=== PATIENT | male | born 1990 | race Caucasian/White ===

== ENCOUNTER 2019-08-10 14:00 | Inpatient (IN) | payer MEDICARE, MEDICAID, SELFPAY ==
[2019-08-10 14:01] VITALS: BP 129/83; PULSE 73; RESP 18; TEMP 36.6; O2SAT 99; BMI 23.0
--- NOTE | 2019-08-10 14:10 | ED_ITS ---
Entered by Lexii Staton, acting as scribe for Gloria Sutton MD, [facility] HPI - Psych General: Chief Complaint: Psychiatric Symptoms Stated Complaint: psych eval Time Seen by Provider: 08/10/19 14:09 Source: patient Mode of arrival: EMS Limitations: no limitations History of Present Illness: HPI Narrative: 28 yo Male presents to ED with complaint of psychiatric symptoms. Pt states that he moved here in May with his uncle. Pt states that he moved here from [place]. Pt states that he started getting really lonely and depressed. Pt states that he reached out to his dad's side of the family and moved to [place]. Pt states that they were alcoholics and he was subjected to that every night. Pt states that he left his uncle's house and went to stay with a girl named Alisson. Pt states that she smoked marijuana and methamphetamines and she kept trying to sleep with him. Pt states that it wasn't the place for him. Pt states that he smokes cigarettes now but only did because his aunt smoked and then he used chewing tobacco because his uncle gave it to him. Pt states that he doesn't do any drugs. Pt states that he is his worst critic and anytime anything bad happens he beats himself up about it. Pt denies suicidal and homicidal ideations at this time. Pt states that he hated to call the supervisor pole yard on his uncle but it was a matter of his own safety. Pt states that he gets paid on August 18 and he can get back to [place]. complaint: feels depressed Onset (ago): month(s) Duration: constant History of same: Yes Relieving factors: none Exacerbating factors: none Context: significant life stressor Associated psychiatric symptoms: depression Associated symptoms: Reports depression; Deny homicidal ideation or suicidal ideation Treatments prior to arrival: none Review of Systems General: Reports: 10 or more systems reviewed and unremarkable except in HPI and below Const: Denies: fever, chills or body aches Eyes: Denies: change in vision or blurry vision ENMT: Denies: throat pain, enlarged tonsils, painful swallowing, hoarseness, mouth pain or swelling of lips/tongue Card: Denies: chest pain, palpitations, irregular heart rhythm, edema or swelling of feet/ankles Resp: Denies: shortness of breath, productive cough or non-productive cough GI: Denies: abdominal pain, nausea or vomiting : Denies: flank pain, painful urination, urinary frequency, urinary urgency or urinary hesitancy Musc: Denies: neck pain, back pain or extremity swelling Skin/Breast: Denies: rash, itching or redness Neuro: Denies: headache, numbness in extremities or weakness in extremities Psych: Reports: anxiety and depression; Denies: suicidal ideation or homicidal ideation Endo: Denies: excessive urination, excessive thirst or tired all the time PFSH ED PFSH: Social History Smoking and tobacco status: current every day smoker Physical Exam Const: COMMON NORMALS: no apparent distress, average body habitus, oriented x3, no limitations, healthy appearing, alert and well nourished HENMT: COMMON NORMALS: normocephalic, head/scalp atraumatic and moist oral mucous membranes HEAD & SCALP: normocephalic and atraumatic Eye: COMMON NORMALS: PERRL, EOMs intact bilaterally, conjunctivae normal and no scleral icterus CONJUNCTIVA: Yes conjunctivae normal PUPIL: Yes PERRL Neck/C-Spine: COMMON NORMALS: full ROM, supple, no meningeal signs, no JVD and no carotid bruits Chest: COMMONS NORMALS: inspection of chest normal and palpation of chest normal Resp: COMMON NORMALS: normal respiratory effort, no retractions, no use of accessory muscles, clear to auscultation bilaterally and percussion normal AUSCULTATION: clear to auscultation bilaterally PERCUSSION: percussion normal Cardio: COMMON NORMALS: no JVD, regular rate, regular rhythm, S1 normal heart sound, S2 normal heart sound, no gallops, no clicks, no murmurs, no rub and peripheral pulses 2+ throughout RATE: regular rate RHYTHM: regular rhythm HEART SOUNDS: S1 normal and S2 normal PERIPHERAL PULSES: pulses 2+ throughout GI: COMMON NORMALS: normal to inspection, nondistended, normoactive bowel sounds, soft to palpation, non-tender, no hepatosplenomegaly, no masses and no bruits PALPATION: Yes soft and Yes no hepatosplenomegaly : COMMON NORMALS: Yes no CVA tenderness BLADDER/KIDNEY EXAM: Yes no CVA tenderness Back/Pelvis: COMMON NORMALS: no CVA tenderness Extremity: COMMON NORMALS: normal to inspection, full ROM, normal capillary refill, no calf tenderness and no pedal edema Neuro: COMMON NORMALS: oriented x3 SENSORIUM/ORIENTATION: Yes alert MENINGEAL SIGNS: Yes no meningeal signs Skin: COMMON NORMALS: no rashes or lesions noted, no wounds, skin turgor normal, no jaundice, no petechiae and no mottling GENERAL SKIN EXAM: no rashes or lesions noted and turgor normal MDM - Psych MDM Narrative: Medical decision making narrative: 28-year-old male patient w ith a history of anxiety who presents to the emergency department with anxiety and some paranoid thoughts concerning his family. The patient lives about 3 hours away from here but decided to move in with his father's family. Apparently they are involved with drugs and alcohol and the patient feels very unsafe there. He is very anxious and thinks someone may drug him without his consent. He feels like he needs to be away from them. He is therefore admitted for severe anxiety. Medical Records: Attestation: I reviewed the patient's medical records. Lab Data: Attestation: I reviewed the patient's lab results. Labs: Lab Results 08/10/19 08/10/19 08/10/19 Range/Units 14:48 14:48 14:50 WBC 6.7 (4.0-10.0) 10^3/ uL RBC 5.17 (4.1-5.3) 10^6/u L Hgb 15.8 (11.7-16.6) g/dL Hct 47.6 (42.0-52.0) % MCV 92.1 (80-94) fL MCH 30.6 (28.0-34.0) pg MCHC 33.2 (30.0-36.0) g/dL RDW 12.3 (12.1-15.1) % Plt Count 174 (130-400) 10^3/c mm MPV 11.1 H (7.4-10.4) fL Neut % (Auto) 59.5 % Lymph % (Auto) 28.7 % [place] % (Auto) 6.8 % Eos % (Auto) 4.3 % Baso % (Auto) 0.6 % Neut # (Auto) 4.0 (1.8-7.7) 10^3/u L Lymph # (Auto) 1.9 (0.8-4.8) 10^3/u L [place] # (Auto) 0.5 (0.2-0.9) 10^3/u L Eos # (Auto) 0.3 (0.0-0.8) 10^3/u L Baso # (Auto) 0.0 (0.0-0.1) 10^3/u L Nucleated RBC % (a uto) 0 % Nucleated RBCs # 0.0 /100WBC Sodium 138 (136-145) mmol/L Potassium 4.3 (3.5-5.1) mmol/L Chloride 100 (98-107) mmol/L Carbon Dioxide 28 (22-29) mmol/L Anion Gap 14.3 (5-19) BUN 7 (6-20) mg/dL Creatinine 0.9 (0.7-1.2) mg/dL GFR Calculation 102.0 (90-130) mL/min Glucose 93 (65-115) mg/dL Calcium 9.7 (8.5-10.5) mg/dL Total Bilirubin 0.7 (0.15-1.2) mg/dL AST 21 (0-40) U/L ALT 13 (0-41) U/L Alkaline Phosphata se 75 (40-130) IU/L Total Protein 6.5 L (6.6-8.7) g/dL Albumin 4.7 (3.5-5.2) g/dL Globulin 1.8 (1.3-4.6) g/dL Urine Color Straw (Yellow) Urine Appearance Clear (CLEAR) Urine pH 6 (5-7) Ur Specific Gravit y 1.010 (1.005-1.030) Urine Protein Neg (Negative) Urine Glucose (UA) Norm (Normal) Urine Ketones Negative (Negative) Urine Blood Neg (Negative) Urine Nitrate Negative (Negative) Urine Bilirubin Neg (NEGATIVE) Urine Urobilinogen Norm (Negative) mg/dL Ur Leukocyte Cristine ase Negative (Negative) Salicylates < 0.3 L (3-10) mg/dL Urine Opiates Scre en (Negative) ng/mL Acetaminophen < 5.0 L (10-30) ug/mL Ur Barbiturates Sc reen (Negative) ng/mL Ur Phencyclidine S crn (Negative) ng/mL Ur Amphetamines Sc reen (Negative) ng/mL U Benzodiazepines Scrn (Negative) ng/mL Urine Cocaine Scre en (Negative) ng/mL U Marijuana (THC) Screen (Negative) ng/mL Ethyl Alcohol < 10 (0-10) mg/dL 08/10/19 Range/Units 14:50 WBC (4.0-10.0) 10^3/ uL RBC (4.1-5.3) 10^6/u L Hgb (11.7-16.6) g/dL Hct (42.0-52.0) % MCV (80-94) fL MCH (28.0-34.0) pg MCHC (30.0-36.0) g/dL RDW (12.1-15.1) % Plt Count (130-400) 10^3/c mm MPV (7.4-10.4) fL Neut % (Auto) % Lymph % (Auto) % [place] % (Auto) % Eos % (Auto) % Baso % (Auto) % Neut # (Auto) (1.8-7.7) 10^3/u L Lymph # (Auto) (0.8-4.8) 10^3/u L [place] # (Auto) (0.2-0.9) 10^3/u L Eos # (Auto) (0.0-0.8) 10^3/u L Baso # (Auto) (0.0-0.1) 10^3/u L Nucleated RBC % (a uto) % Nucleated RBCs # /100WBC Sodium (136-145) mmol/L Potassium (3.5-5.1) mmol/L Chloride (98-107) mmol/L Carbon Dioxide (22-29) mmol/L Anion Gap (5-19) BUN (6-20) mg/dL Creatinine (0.7-1.2) mg/dL GFR Calculation (90-130) mL/min Glucose (65-115) mg/dL Calcium (8.5-10.5) mg/dL Total Bilirubin (0.15-1.2) mg/dL AST (0-40) U/L ALT (0-41) U/L Alkaline Phosphata se (40-130) IU/L Total Protein (6.6-8.7) g/dL Albumin (3.5-5.2) g/dL Globulin (1.3-4.6) g/dL Urine Color (Yellow) Urine Appearance (CLEAR) Urine pH (5-7) Ur Specific Gravit y (1.005-1.030) Urine Protein (Negative) Urine Glucose (UA) (Normal) Urine Ketones (Negative) Urine Blood (Negative) Urine Nitrate (Negative) Urine Bilirubin (NEGATIVE) Urine Urobilinogen (Negative) mg/dL Ur Leukocyte Cristine ase (Negative) Salicylates (3-10) mg/dL Urine Opiates Scre en Negative (Negative) ng/mL Acetaminophen (10-30) ug/mL Ur Barbiturates Sc reen Negative (Negative) ng/mL Ur Phencyclidine S crn Negative (Negative) ng/mL Ur Amphetamines Sc reen Negative (Negative) ng/mL U Benzodiazepines Scrn Negative (Negative) ng/mL Urine Cocaine Scre en Negative (Negative) ng/mL U Marijuana (THC) Screen Negative (Negative) ng/mL Ethyl Alcohol (0-10) mg/dL Discharge Plan Discharge Patient Disposition: Admitted As Inpatient Admit Provider: Aleksander Armijo Interventions: ED Discharge Assessment Last Done: 08/10/19 16:30 Discharge Date/Time: 08/10/19 16:30 Coding Level of Care Code ED Stemhole Borer And Topper for Chg Fwd Exam Comprehensive The documentation recorded by the Shemar pham Carmen, accurately reflects the service I personally performed and the decisions made by Lesley maria Adegoke I, MD, [facility] Aug 10, 2019 14:00
[2019-08-10 14:15] VITALS: PULSE 68; RESP 16; O2SAT 98
[2019-08-10 14:17] VITALS: RESP 16
[2019-08-10 14:54] LABS: Basophils % 0.6 %; Eosinophils # 0.3 10^3/uL (0.0-0.8); Eosinophils % 4.3 %; Hematocrit 47.6 % (42.0-52.0); Hemoglobin 15.8 g/dL (11.7-16.6); Lymphocytes # 1.9 10^3/uL (0.8-4.8); Lymphocytes % 28.7 %; Mean Corpuscular HGB Conc 33.2 g/dL (30.0-36.0); Mean Corpuscular Hemoglobin 30.6 pg (28.0-34.0); Mean Corpuscular Volume 92.1 fL (80-94); Mean Platelet Volume 11.1 fL (7.4-10.4); Monocytes # 0.5 10^3/uL (0.2-0.9); Monocytes % 6.8 %; Neutrophils % 59.5 %; Nucleated Red Blood Cells % 0 %; Platelet Count 174 10^3/cmm (130-400); Red Blood Count 5.17 10^6/uL (4.1-5.3); Red Cell Distribution Width 12.3 % (12.1-15.1); White Blood Count 6.7 10^3/uL (4.0-10.0)
[2019-08-10 15:08] LABS: Alanine Aminotransferase 13 U/L (0-41); Albumin Level 4.7 g/dL (3.5-5.2); Alkaline Phosphatase 75 IU/L (40-130); Anion Gap 14.3 (5-19); Aspartate Amino Transferase 21 U/L (0-40); Blood Urea Nitrogen 7 mg/dL (6-20); Calcium 9.7 mg/dL (8.5-10.5); Carbon Dioxide 28 mmol/L (22-29); Chloride 100 mmol/L (98-107); Globulin 1.8 g/dL (1.3-4.6); Glucose 93 mg/dL (65-115); Potassium 4.3 mmol/L (3.5-5.1); Sodium 138 mmol/L (136-145); Total Bilirubin 0.7 mg/dL (0.15-1.2); Total Protein 6.5 g/dL (6.6-8.7)
[2019-08-10 15:09] LABS: Acetaminophen < 5.0 ug/mL (10-30); Alcohol Level < 10 mg/dL (0-10); Salicylate < 0.3 mg/dL (3-10)
[2019-08-10 15:31] LABS: Add Urine Microscopic? NO
[2019-08-10 15:36] LABS: Bilirubin Urine Neg (NEGATIVE); Blood Urine Neg (Negative); Glucose Urine UA Norm (Normal); Ketones Urine Negative (Negative); Leukocyte Esterase Urine Negative (Negative); Nitrate Urine Negative (Negative); Protein Urine Neg (Negative); Urine Appearance Clear (CLEAR); Urine Color Straw (Yellow); Urobilinogen Urine Norm (Negative); pH Urine 6 (5-7)
[2019-08-10 15:53] LABS: Amphetamines Screen Urine Negative (Negative); Barbiturates Screen Urine Negative (Negative); Benzodiazepines Screen Urine Negative (Negative); Cocaine Screen Urine Negative (Negative); Opiate Screen Urine Negative (Negative); PCP Screen Urine Negative (Negative); THC Screen Urine Negative (Negative)
[2019-08-10 16:30] VITALS: BP 127/68; PULSE 78; RESP 18
[2019-08-10 16:46] VITALS: BP 125/80; PULSE 61; RESP 17; TEMP 36.8; O2SAT 99
--- NOTE | 2019-08-10 20:36 | P.HP_ITS ---
Providers/Chief Complaint Admitting Physician: Aleksander Armijo M.D. Chief Complaint: ANXIETY HPI NPU History of Present Illness Jordan Mercado is a 28 year old male who came in overwhelmed with anxiety. He has trouble taking clearly. He has a history of diagnosis schizophrenia, posttraumatic stress disorder and anxiety disorder. He should also have been diagnosed with a depressive disorder. He moved here in May from [place] with his uncle. He had a great set up there, he had furniture and a town home that he was renting and now he is really lonely and depressed. He reached out to his dad's side of the family and moved to [place] but they turned out to be alcoholics and he was subjected to that every night. So he left his uncle's house and went to stay with a girl who smoked marijuana and methamphetamines and she kept trying to sleep with him. That was a mistake. He smokes cigarettes now but only did because his aunt smoked and then he used chewing tobacco because his uncle gave it to him. He doesn't do any drugs. Unfortunately, he is his worst critic and when anything bad happens he beats himself up about it. He denies suicidal and homicidal ideations. Pt states that he hated to call the security police officer on his uncle but it was a matter of his own safety. He gets paid on August 18 and he can get back to [place]. He has been constantly depressed for months. Review of Systems Narrative: General: Reports: 10 or more systems reviewed and unremarkable except in HPI and below Const: Denies: fever, chills or body aches Eyes: Denies: change in vision or blurry vision ENMT: Denies: throat pain, enlarged tonsils, painful swallowing, hoarseness, mouth pain or swelling of lips/tongue Card: Denies: chest pain, palpitations, irregular heart rhythm, edema or swelling of feet/ankles Resp: Denies: shortness of breath, productive cough or non-productive cough GI: Denies: abdominal pain, nausea or vomiting : Denies: flank pain, painful urination, urinary frequency, urinary urgency or urinary hesitancy Musc: Denies: neck pain, back pain or extremity swelling Skin/Breast: Denies: rash, itching or redness Neuro: Denies: headache, numbness in extremities or weakness in extremities Psych: Reports: anxiety and depression; Denies: suicidal ideation or homicidal ideation Endo: Denies: excessive urination, excessive thirst or tired all the time Meds NPU Home Medications Medication Instructions Recorded Confirmed Type benztropine 1 mg PO DAILY 08/10/19 08/10/19 History clonazepam 1 mg PO BID 08/10/19 08/10/19 History diazepam [Valium] 5 mg PO BID 08/10/19 08/10/19 History olanzapine 10 mg PO BID 08/10/19 08/10/19 History sertraline 50 mg PO DAILY 08/10/19 08/10/19 History Allergies Allergy/AdvReac Type Severity Reaction Status Date / Time diphenhydramine Allergy Unknown Verified 08/10/19 14:13 [From Benadryl] Penicillins Allergy Unknown Verified 08/10/19 14:14 risperidone [From Risperdal] Allergy Unknown Verified 08/10/19 14:13 trazodone Allergy Unknown Verified 08/10/19 14:13 PFSH NPU PFSH: Social History Smoking and tobacco status: current every day smoker Other Psychiatric History: Other Psychiatric History: The patient has a psychiatric clinic to which he goes. He has a counselor there, medical social consultant and a psychiatrist. He joined the [employer], went through basic training and advanced individual training and went to work on the [employer] range at [place]. 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 He was ultimately given disability and an honorable discharge from the [employer]. He has most recently been maintained on Klonopin 1 mg twice daily and sertraline 50 mg daily. He says this combination is been most helpful. NHANES Social Connection/Isolation: Are you now , , , , never or living with a partner?: Never In a typical week, how many times do you talk on the telephone with family, friends, or neighbors?: Twice per Week How often do you get together with friends or relatives?: Never How often do you attend mu-ism or moravian services?: 1-3 Times per Year Do you belong to any clubs or organizations such as mu-ism groups unions, fraternal or athletic groups, or school groups?: No Social isolation score (0-1 are the most socially isolated patients): 0 Mental Status Exam MSE Comments: This is a 38-year-old male who presents at his stated age. He is heavily tattooed but of good hygiene and well-groomed. He is very self doubtful. Thought processes are integrated and free of any racing, blocking or looseness of association. There are no signs of psychosis, such as hallucinations delusions or ideas of reference. Cognitive functions are intact orientation memory and judgment are reasonably good but insight into his proble ms definitely require some CBT. Speech is of normal rate and volume, without dysarthria, aprosody or pressure. Vitals/I&O/Wt Last Vital Signs Temp 98.3 F 08/10/19 16:46 Pulse 61 08/10/19 16:46 Resp 17 08/10/19 16:46 BP 125/80 08/10/19 16:46 Pulse Ox 99 08/10/19 16:46 Weight last 48 hrs Weight 165 lb Data NPU : 08/10/19 14:48 08/10/19 14:48 A&P Assessment and plan (1) Acute adjustment disorder with mixed anxiety and depressed mood: The patient needs to get back to his roots and away from his family. He also needs to get into some heavy, intense CBT to figure out why he always gets himself into situations that are really no good for him. Pharmacotherapy is helpful but it is clearly not the answer. Status: Acute Code(s): F43.23 - Adjustment disorder with mixed anxiety and depressed mood Involuntary Hold Information 96 Hour Hold: 96 Hour Involuntary Admission: No Attestations NPU Medical Necessity Statement*: This patient's really troubled. I anticipate 5- 7 midnights additional hospitalization. Time Spent in Patient Care: Greater than 35 minutes (>than 50% of time spent in counselling and/or direct pt care on unit) . Coding Level of Care Code Acute Evaluation Manager for Trenton Pruitt Diagnoses Acute adjustment disorder with mixed anxiety and depressed mood F43.23
[2019-08-10] MEDS: acetaminophen 325 mg Tablet 650 MG PO (20:38)
[2019-08-10 22:00] VITALS: BP 111/73; PULSE 74; RESP 20; TEMP 36.8; O2SAT 97
[2019-08-11 06:00] VITALS: BP 111/71; PULSE 72; RESP 19; TEMP 36.5; O2SAT 99
[2019-08-11 14:00] VITALS: BP 119/72; PULSE 70; RESP 18; TEMP 36.8; O2SAT 97
[2019-08-11] MEDS: CLONazepam 0.5 mg Tablet PO ×2 (17:46→21:11)
--- NOTE | 2019-08-11 19:05 | P.PN_ITS ---
Subjective NPU Subjective: Interval history: This man's anxiety is overwhelming. He says he has OCD real bad and responded very well to sertraline but he stopped it. His OCD got worse and, when he tried to get back on the sertraline, it gave him oculogyric crisis and he had to get off it immediately. I told him there are other meds that we might consider. He was reluctant to proceed. Medications: Reviewed: Yes Medication Review Details: He is not on anything that would truly be therapeutic. He receives clonazepam 0.5 mg p.o. 3 times daily. Mental Status Exam MSE Comments: The patient presents as a 28-year-old male who presents clean and neat. His mood is profoundly anxious and his affect is tense. Thought processes are rambling and he cannot stop obsessing about how he is going to get back to [place] and where he is going to live. Speech is of normal rate and volume, without dysarthria, aprosody or pressure. There is no evidence of psychosis, such as but not limited to hallucination, delusion and ideas of reference. The patient fortunately denies suicidal or homicidal ideation, plan or intent. Vitals/I&O/Wt Last Vital Signs Temp 98.3 F 08/11/19 14:00 Pulse 70 08/11/19 14:00 Resp 18 08/11/19 14:00 BP 119/72 08/11/19 14:00 Pulse Ox 97 08/11/19 14:00 Weight last 48 hrs Weight 165 lb Data NPU : 08/10/19 14:48 08/10/19 14:48 A&P Additional A&P Information (1) Acute adjustment disorder with mixed anxiety and depressed mood: The patient needs to get back to his roots and away from his family. He also needs to get into some heavy, intense CBT to figure out why he always gets himself into situations that are really no good for him. Pharmacotherapy is helpful but it is clearly not the answer. (2) It is now obvious that what we are dealing with his obsessive-compulsive disorder, which is in fact amenable to treatment but he is afraid of it, he having had significant side effects from his second course of sertraline. Hopefully he will be able to get on pharmacotherapy again. Involuntary Hold Information 96 Hour Hold: 96 Hour Involuntary Admission: No Attestations NPU Medical Necessity Statement*: This patient is basically unable to function. I anticipate 5 to 7 midnights Time Spent in Patient Care: Greater than 35 minutes (>than 50% of time spent in counselling and/or direct pt care on unit) . Coding Level of Care Code Acute Computer Numeric Control Setter for Trenton Pruitt
--- NOTE | 2019-08-11 19:18 | PM.NPN ---
Vitals/I&O/Wt Last Vital Signs Temp 98.3 F 08/11/19 14:00 Pulse 70 08/11/19 14:00 Resp 18 08/11/19 14:00 BP 119/72 08/11/19 14:00 Pulse Ox 97 08/11/19 14:00 Weight last 48 hrs Weight 165 lb Data NPU : 08/10/19 14:48 08/10/19 14:48 Involuntary Hold Information 96 Hour Hold: 96 Hour Involuntary Admission: No Coding Level of Care Code Acute Vice President Of Communications for Trenton Pruitt
[2019-08-11 20:24] VITALS: BP 119/72; PULSE 70; RESP 18; TEMP 36.8; O2SAT 97
[2019-08-11] MEDS: acetaminophen 325 mg Tablet 650 MG PO (21:08)
[2019-08-11 22:00] VITALS: BP 124/76; PULSE 110; RESP 22; TEMP 36.5; O2SAT 99
[2019-08-11] MEDS: ondansetron 4 MG Tablet PO (23:37)
[2019-08-11] MEDS: loperamide 2 mg Capsule PO (23:37)
--- NOTE | 2019-08-12 | PC.NURSE ---
pt had episode of nausea, then vomiting, times 1, also one episode of diarrhea. Zofran and Imodium. Pt resting at this time.
[2019-08-12 06:00] VITALS: BP 97/57; PULSE 93; RESP 21; TEMP 37.6; O2SAT 96
[2019-08-12] MEDS: CLONazepam 0.5 mg Tablet PO ×3 (08:45→21:37)
--- NOTE | 2019-08-12 10:56 | NPU.GN ---
Neuropsych Unit Group Topic: General Mood of Group client is sick with fever today
--- NOTE | 2019-08-12 12:23 | PM.NPN ---
Subjective NPU Subjective: Interval history: The patient feels significantly better from a psychiatric perspective. He has support from a friend who will pay for a ticket from [place] to [place], where he can get back on his feet. He does not seem as scattered today. Unfortunately, he went through a brief period of what appears to have been GI virus, with fever, nausea, vomiting and diarrhea. I have briefed the principal planner and we will await further developments. Medications: Reviewed: Yes Medication Review Details: Generic Name Dose Route Start Last Admin Trade Name Freq PRN Reason Stop Dose Admin Acetaminophen 650 mg 08/10/19 16:19 08/11/19 21:08 Tylenol PO 650 mg Q4H PRN Administration MILD PAIN Clonazepam 0.5 mg 08/11/19 17:35 08/12/19 08:45 Klonopin PO 0.5 mg TID BONNY Administration Loperamide HCl 2 mg 08/10/19 16:19 08/11/19 23:37 Imodium Capsule PO 2 mg Q6H PRN Administration DIARRHEA Ondansetron HCl 4 mg 08/10/19 16:19 08/11/19 23:37 Zofran PO 4 mg Q6H PRN Administration NAUSEA AND VOMITI NG Mental Status Exam MSE Comments: This is a 28-year-old male who presents at his stated age. He is clean and neat. He seems not to have been affected by his flu. Mood is bright and his affect is calm and euthymic. Thought processes are integrated and is no longer scattered. With his OCD had been bouncing all over the place. There is no racing, blocking or looseness of association. There is no evidence of psychosis, such as but not limited to hallucinations, delusions or ideas of reference. Speech is of normal rate and volume, without dysarthria, aprosody or pressure. He denies suicidal or homicidal ideation, plan or intent. Cognitive functions are definitely intact. He is a bright young man, with unimpaired orientation, capacity for reason, and insight and judgment to some extent when he is not defeating himself. Vitals/I&O/Wt Last Vital Signs Temp 99.6 F 08/12/19 06:00 Pulse 93 08/12/19 06:00 Resp 21 H 08/12/19 06:00 BP 97/57 08/12/19 06:00 Pulse Ox 96 08/12/19 06:00 Weight last 48 hrs Weight 165 lb Data NPU : 08/10/19 14:48 08/10/19 14:48 A&P Additional A&P Information (1) Acute adjustment disorder with mixed anxiety and depressed mood: The patient needs to get back to his roots and away from his family. He also needs to get into some heavy, intense CBT to figure out why he always gets himself into situations that are really no good for him. Pharmacotherapy is helpful but it is clearly not the complete answer. (2) Obsessive-compulsive disorder. Hopefully he will be able to get on pharmacotherapy again. Involuntary Hold Information 96 Hour Hold: 96 Hour Involuntary Admission: No Attestations NPU Medical Necessity Statement*: I anticipate 2-3 midnights to complete arrangements for discharge. Time Spent in Patient Care: Greater than 35 minutes (>than 50% of time spent in counselling and/or direct pt care on unit). Coding Level of Care Code Acute Vocational Examiner for Trenton Pruitt
--- NOTE | 2019-08-12 13:53 | P.DS_ITS ---
Diagnoses at Discharge Discharge Diagnosis (1) Acute adjustment disorder with mixed anxiety and depressed mood: Status: Acute Problem details: Patient was in an acute psychosocial crisis which is now resolving. He has a bus waiting for him at 5:15 PM to [place],, where he will get a ride to [place]. (2) Obsessive compulsive disorder: Status: Acute Problem details: Patient has had OCD for some time and had responded to sertraline. He now is allergic to it and is referred to [facility] outpatient psychiatry clinic in [place] for evaluation and reestablishment of pharmacotherapy. Reason for Visit Reason for Visit: Reason For Visit: ANXIETY Hospital Course Hospital Course The patient's diagnosis has now been clarified. If [facility] outpatient psychiatry clinic can find a medication that he will except and which will not provoke side effects he may have a much more peaceful life. He has, with the structure of the treatment environment, calm down and is comfortable enough and certainly competent enough to make the trip to [place]. Involuntary Hold Information 96 Hour Hold: 96 Hour Involuntary Admission: No Mental Status Exam MSE Comments: This is a 28-year-old male who presents at his stated age. He is clean and neat. He seems not to have been affected by his flu. Mood is bright and his affect is calm and euthymic. Thought processes are integrated and is no longer scattered. With his OCD had been bouncing all over the place. There is no racing, blocking or looseness of association. There is no evidence of psychosis, such as but not limited to hallucinations, delusions or ideas of reference. Speech is of normal rate and volume, without dysarthria, aprosody or pressure. He denies suicidal or homicidal ideation, plan or intent. Cognitive functions are definitely intact. He is a bright young man, with unimpaired orientation, capacity for reason, and insight and judgment to some extent when he is not defeating himself. Discharge Data Vitals: Last Vital Signs Temp 99.6 F 08/12/19 06:00 Pulse 93 08/12/19 06:00 Resp 21 H 08/12/19 06:00 BP 97/57 08/12/19 06:00 Pulse Ox 96 08/12/19 06:00 Discharge Plan Discharge Patient Disposition: Home, Self-Care Condition: Stable Prescriptions: New clonazepam 0.5 mg Tablet 0.5 mg PO TID 30 Days Qty: 90 RF: 0 Continued olanzapine 10 mg Tablet 10 mg PO BID RF: 0 Discontinued clonazepam 1 mg Tablet 1 mg PO BID RF: 0 sertraline 50 mg Tablet 50 mg PO DAILY RF: 0 diazepam [Valium] 5 mg Tablet 5 mg PO BID RF: 0 benztropine 1 mg Tablet 1 mg PO DAILY RF: 0 Discharge Orders: Discharge Order (Routine); Ordered 08/12/19 Ordered By: Aleksander Armijo Referrals: [facility] [Other] (Same day, walk-in services are available Sunday- Sunday from 8am-5pm.) Discharge Diet: Usual diet Discharge Activity: Resume usual activity Activity Restrictions/Additional Instructions: No restrictions. Discharge Attestations NPU Time Spent in Discharge Care*: greater than 30 min Specific Discharge Activities: Specific discharge activities: educating patient, discussing with housing case manager/social workers/dc planners, documenting/other paperwork and evaluating patient/reviewing data Status at Discharge: Cognitive status at discharge: cognitively intact , Behavioral status at discharge: cooperative , Functional status at discharge: independent ambulation Overall status at discharge: patient is progressing back to baseline Coding Level of Care Code Acute [place] [employer] [place] [employer] Diagnoses Acute adjustment disorder with mixed anxiety and depressed mood F43.23 Obsessive compulsive disorder F42.9
[2019-08-12 14:00] VITALS: BP 95/42; PULSE 102; RESP 18; TEMP 38.5; O2SAT 98
[2019-08-12] MEDS: acetaminophen 325 mg Tablet 650 MG PO ×2 (14:06→21:37)
[2019-08-12 14:47] VITALS: TEMP 37.5
[2019-08-12 19:58] VITALS: BP 97/63; PULSE 92; RESP 19; TEMP 37.3; O2SAT 98
[2019-08-13 06:00] VITALS: BP 103/61; PULSE 89; RESP 20; TEMP 37.2; O2SAT 99
[2019-08-13] MEDS: CLONazepam 0.5 mg Tablet PO (08:29)
[2019-08-13] MEDS: acetaminophen 325 mg Tablet 650 MG PO (08:29)
[2019-08-13 09:01] VITALS: BP 103/61; PULSE 89; RESP 20; TEMP 37.2; O2SAT 99
[2019-08-13 09:10] VITALS: BP 103/61; PULSE 89; RESP 20; TEMP 37.2; O2SAT 99
== END 2019-08-13 13:10 | disposition home or self-care (01) | DRG 882 ==
LOC: ER 15:14 → NP 16:30
PROVIDERS: Emergency Provider Family Medicine
DX: F43.25 Adjustment disorder with mixed disturbance of emotions and conduct (principal); R46.81 Obsessive-compulsive behavior; R50.9 Fever, unspecified; F17.210 Nicotine dependence, cigarettes, uncomplicated; F43.10 Post-traumatic stress disorder, unspecified; F41.9 Anxiety disorder, unspecified
CPT/HCPCS: 12345; 36415; 80053; 80307; 81003; 85025; 99284; A9270; Q0162